=== PATIENT | male | born 1990 | race Caucasian/White ===

== ENCOUNTER 2024-12-10 03:52 | Emergency (ER) | payer SELFPAY ==
[~2024-12-10] VITALS: Ht 180.3 cm; Wt 73.5 kg
[2024-12-10] MEDS ORDERED: TRAZ-182 PO (04:46)
[2024-12-10 04:59] VITALS: BP 138/84; TEMP 98.2; O2SAT 98
== END 2024-12-10 04:59 | disposition home or self-care (01) ==
LOC: ER 03:59
DX: F41.0 Panic disorder [episodic paroxysmal anxiety] (principal); G47.00 Insomnia, unspecified